=== PATIENT | male | born 1990 | race Caucasian/White ===

== ENCOUNTER 2024-04-01 06:43 | Emergency (ER) | payer OTHER ==
[2024-04-01 06:56] VITALS: RESP 18; TEMP 97.6; BMI 34.5
[2024-04-01 08:29] LABS: BASO % 0.2 % (0-2.0); EOS % 0.4 % (0-4.5); HEMATOCRIT 41.2 % (35.4-49); LYMPH % 16.7 % (8-40); MCH 31.1 pg (25.7-33.7); MCHC 33.9 g/dl (32.0-35.9); MEAN CELL VOLUME 91.8 fl (80-96); MEAN PLT VOLUME 7.9 fl (7.5-11.1); MONO % 7.9 % (3.8-10.2); NEUT % 74.8 % (42.8-82.8); PLATELET COUNT 297 10^3/uL (134-434); RBC 4.49 M/mm3 (4.00-5.60); WHITE BLOOD COUNT 13.6 K/mm3 (4.0-10.0)
[2024-04-01 08:32] LABS: EPI CELLS 2 /uL (0-25.1); HYALINE CASTS 1 /uL (0-3.1); URINE APPEARANCE CLEAR; URINE BACTERIA 1 /uL (0-1359); URINE BILIRUBIN NEGATIVE (NEGATIVE); URINE COLOR YELLOW; URINE GLUCOSE (UA) NEGATIVE (NEGATIVE); URINE KETONE TRACE (NEGATIVE); URINE LEUK ESTERASE TRACE (NEGATIVE); URINE NITRITE NEGATIVE (NEGATIVE); URINE PROTEIN TRACE (NEGATIVE); URINE RBC 17 /uL (0-23.9); URINE WBC 48 /uL (0-25.8)
[2024-04-01 08:50] LABS: ALBUMIN 4.1 g/dl (3.4-5.0); BLOOD UREA NITROGEN 15.2 mg/dL (7-18)
[2024-04-01 08:53] LABS: CREATININE 1.3 mg/dL (0.55-1.3)
[2024-04-01 08:55] LABS: BILIRUBIN,TOTAL 1.2 mg/dL (0.2-1); TOT PROT 7.7 g/dl (6.4-8.2)
[2024-04-01 13:03] LABS: HIV INTERPRETATION NEGATIVE (NEGATIVE)
[2024-04-01 13:13] VITALS: BP 114/74; PULSE 86
[2024-04-01] MEDS ORDERED: DOXYCYCLINE HYCLATE 100 MG CAPSULE PO ONE (13:40)
[2024-04-01] MEDS ORDERED: LIDOCAINE HCL/PF 1% SDV 5ML VIAL ONE (13:44)
[2024-04-01] MEDS: DOXYCYCLINE HYCLATE 100 MG CAPSULE PO ONE (13:53)
== END 2024-04-01 15:16 | disposition home or self-care (01) ==
LOC: JER 06:43
DX: N50.89 Other specified disorders of the male genital organs (principal); N50.811 Right testicular pain; R50.9 Fever, unspecified; R30.9 Painful micturition, unspecified
CPT/HCPCS: 36415; 74177-TC; 76870-TC; 80053; 81003; 85025; 86632; 87086; 87389; 99285-25